=== PATIENT | female | born 1940 | race Caucasian/White ===

== ENCOUNTER 2024-03-08 14:48 | Emergency (ER) | payer MEDICARE, OTHER, SELFPAY ==
[2024-03-08 15:02] VITALS: BP 162/80
[2024-03-08 15:16] VITALS: BP 189/57
[2024-03-08 15:31] VITALS: BP 185/58
[2024-03-08 15:33] VITALS: BMI 24.4
[2024-03-08 15:34] VITALS: BP 180/56
--- NOTE | 2024-03-08 15:53 | ED.GENMED ---
History of Present Illness
General
Chief Complaint: Fall
Source: patient and family
Time Seen by Provider: 03/08/24 15:30
History of Present Illness
History of Present Illness:
83-year-old female presents to the emergency room complaining of falling and injuring her face. Patient states that she lost her balance while outside and fell into her flower bed. Patient did not have a loss of consciousness. She has pain
located in her nose and face. She denies neck pain. She denies any weakness numbness or tingling. She also has pain in her right hand. Patient denies taking any anticoagulants. She denies any nausea or vomiting since the fall.
Phy Exam
Physical Exam
Physical Exam:
General: Awake, Alert, Oriented X3. No acute distress.
Vitals: unremarkable
Head: Ecchymosis and swelling noted over the nose. There is ecchymosis about bilateral orbits. Septum is midline. There is no septal hematoma noted. There is also ecchymosis over the anterior chin. No pain with opening closing her mouth.
Eyes: Pupils equal, EOMI
Throat: Airway intact, no exudates
Neck: Trachea midline, no tenderness to palpation of the midline spine
Lungs: Clear and equal b/l
Heart: Regular rate, no murmurs
Abd: Soft, Nontender, No pulsatile mass
Neuro: Nonfocal
Skin: Warm, dry, no rash
Extremities: pulses equal b/l, no edema. Mild pain with flexion of the fourth and fifth digit right hand. No significant swelling or ecchymosis noted.
Course
Orders/Labs/Results
Orders:
Orders
03/08/24 15:49
CT Facial Bones W/o Iv Contras Urgent
Comment:
Reason For Exam: fall, face/head injury
03/08/24 15:51
CT Cervical Spine W/o Iv Contr Urgent
Comment:
Reason For Exam: fall, face/head injury
CT Head W/o Iv Contrast Urgent
Comment:
Reason For Exam: fall, face/head injury
03/08/24 16:06
Tetanus/Diphth/Acelpertussis [Adacel] 0.5 ml IM .ONCE ONE
03/08/24 16:08
Hand, Right 3 View [CR Hand - Right Min 3 Views] Urgent
Comment:
Reason For Exam: pain after a fall
Vital Signs
Initial and Last Documented VS:
Initial Vital Signs
Temp Pulse Resp BP Pulse Ox
97.4 F 62 18 162/80 97
03/08/24 15:02 03/08/24 15:02 03/08/24 15:02 03/08/24 15:02 03/08/24 15:02
Last Documented Vital Signs
Temp Pulse Resp BP Pulse Ox
97.4 F 62 18 178/63 97
03/08/24 15:02 03/08/24 15:02 03/08/24 15:02 03/08/24 16:00 03/08/24 16:00
MDM/Problems Addressed
Differential Diagnosis Includes:
Intracranial bleed, orbital fracture, other facial bone fracture, cervical spine fracture
MDM/Problems Addressed:
Patient presents for evaluation after a fall. She has significant bruising on her face but is alert and interactive. Imaging shows a nasal bone fracture but otherwise no acute traumatic injury. Hand x-ray is negative for fracture but she does
have DJD. Patient stable for discharge home.
*Radiology
Radiology exam reviewed: radiology read reviewed
*Pulse Oximetry
Patient hypoxic: no
*Critical Care Note
Total Time (30-74mins, 75-104mins- exclusive of procedures): Not Applicable
Patient Management
Social determinants of health affecting care: Living situation and Strong social support
ED Attending Note
-
Portions of this chart may have been created with voice recognition software.� Occasional wrong word or��sound alike� substitutions may have occurred due to the inherent limitations of voice recognition software.
Discharge Plan
Departure
Patient Disposition: Home (Routine Discharge)
Date of Disposition: 03/08/24
Time of Disposition: 18:20
Patient with high blood pressure during this ER visit?: No
Condition: Good
Discharge Problem:
Head injury, Fracture of nasal bone, Abrasion
Instructions: Head Injury in Adults (DC), Abrasions ED, Contusion
Prescriptions:
No Action
No Current Medications
0
Referrals:
Mounika Reddy DO [Family Provider] -
Interventions
Interventions:
*Risk Screen - Suicide Last Done: 03/08/24 15:33
*General Assessment Last Done: 03/08/24 15:33
*Neglect/Abuse Screening Last Done: 03/08/24 15:33
ED- Fall Risk Assessment Last Done: 03/08/24 15:33
*ED COVID-19 Vaccine History Last Done: 03/08/24 15:33
*Nursing Disposition Last Done: 03/08/24 18:32
ED-Musculoskeletal Assessment Last Done: 03/08/24 15:33
ED- Neurological Assessment Last Done: 03/08/24 15:33
ED-Skin Assessment Last Done: 03/08/24 15:33
Discharge Date and Time
Discharge Date/Time: 03/08/24 18:33
Print Language: PALAUAN
[2024-03-08 16:00] VITALS: BP 178/63
[2024-03-08] MEDS: ADACEL 0.5 ML IM (17:24)
== END 2024-03-08 18:33 | disposition home or self-care (01) ==
LOC: EMR 14:48
PROVIDERS: EMERGENCY PHYSICIAN Emergency Medicine; FAMILY PHYSICIAN Family Medicine
DX: S09.90XA Unspecified injury of head, initial encounter (principal); S02.2XXA Fracture of nasal bones, initial encounter for closed fracture; W19.XXXA Unspecified fall, initial encounter; Z23 Encounter for immunization
CPT/HCPCS: 99284; 90471; 70450; 70486; 72125; 73130; 90715